=== PATIENT | female | born 1990 | race Two or more races ===

== ENCOUNTER 2018-10-08 11:02 | Inpatient (IN) | payer OTHER ==
[~2018-10-08] VITALS: Ht 162.6 cm; Wt 112.0 kg
== END 2018-10-17 12:34 | disposition home or self-care (01) | DRG 788 ==
LOC: LDR 10-14 00:35 → OB/GYN 10-14 00:35 → O/R 10-14 20:35 → OB/GYN 10-14 20:47
PROVIDERS: ADMIT Specialist
PROC: 3E033VJ Introduction of Other Hormone into Peripheral Vein, Percutaneous Approach (ICD-10-PCS; 2018-10-14)
PROC: 4A1HXCZ Monitoring of Products of Conception, Cardiac Rate, External Approach (ICD-10-PCS; 2018-10-14)
PROC: 10D00Z1 Extraction of Products of Conception, Low, Open Approach (ICD-10-PCS; principal; 2018-10-14 18:00)
DX: O62.0 Primary inadequate contractions (principal); Z3A.39 39 weeks gestation of pregnancy; Z37.0 Single live birth